=== PATIENT | female | born 1995 | race Caucasian/White ===

== ENCOUNTER 2016-07-26 04:41 | Emergency (ER) | payer MEDICAID ==
[2016-07-26 04:46] VITALS: TEMP 98.6
[2016-07-26] MEDS ORDERED: ONDANSETRON 4 MG/2 ML VIAL ONE (04:53)
[2016-07-26] MEDS ORDERED: ONDANSETRON 4 MG/2 ML VIAL IVP ONE (04:59)
[2016-07-26] MEDS ORDERED: NS 1,000 ML IV ONE ×2 (04:59→05:32)
[2016-07-26 05:07] LABS: % IMMATURE GRANULYOCYTES 0.2 % (0.0-1.1); ABSOLUTE IMMATURE GRANULOCYTES 0.03 10^3/uL (0.00-0.10); ADD DIFF? NO; ADD MORPH? NO; ADD SCAN? NO; ATYPICAL LYMPHOCYTE FLAG 10 (0-99); FRAGMENT RBC FLAG 0 (0-99); HEMATOCRIT 45.4 % (38.0-47.0); HEMOGLOBIN 15.6 g/dL (12.6-16.3); LEFT SHIFT FLG 0 (0-99); LIPEMIA HEMOLYSIS FLAG 90 (0-99); MEAN CELL HEMOGLOBIN 30.5 pg (27.9-34.1); MEAN CELL HEMOGLOBIN CONCENTR. 34.4 g/dL (32.4-36.7); MEAN CELL VOLUME 88.7 fL (81.5-99.8); MEAN PLATELET VOLUME 11.1 fL (8.7-11.7); PLATELET CLUMPS FLAG 10 (0-99); PLATELET COUNT 191 10^3/uL (150-400); RED BLOOD CELL COUNT 5.12 10^6/uL (4.18-5.33); RED CELL DISTRIBUTION WIDTH 13.1 % (11.5-15.2)
--- NOTE | 2016-07-26 05:17 | EDPHY ---
H & P Stated Complaint: n/v/d Time Seen by Provider: 07/26/16 04:52 HPI/ROS: HPI The patient presents with nausea, vomiting, abdominal pain, diarrhea. Her symptoms started at about 8 or 9:00 p.m. last night, initially with mild right- sided lower abdominal pain, they were crampy in nature. She later developed multiple episodes of nonbloody nonbilious emesis and about 2 episodes of watery diarrhea. Because of the vomiting, she came into the emergency room for further care. She has not had a fever. She has no history of similar pain. She has no sick contacts. REVIEW OF SYSTEMS Constitutional: No fever, no chills. Eyes: No discharge. ENT: No sore throat. Cardiovascular: No chest pain, no palpitations. Respiratory: No cough, no shortness of breath. Gastrointestinal: See HPI Genitourinary: No hematuria. Musculoskeletal: No back pain. Skin: No rashes. Neurological: No headache. PMHx: Healthy, has IUD in place Soc Hx: No recent alcohol use PHYSICAL General Appearance: Alert, no distress Eyes: Pupils equal and round no pallor or injection ENT, Mouth: Mucous membranes moist Respiratory: There are no retractions, lungs are clear to auscultation Cardiovascular: Regular rate and rhythm Gastrointestinal: Abdomen is soft and non-tender, no masses, bowel sounds normal Neurological: A&O, moves all extremities Skin: Warm and dry, no rashes Musculoskeletal: Neck is supple non tender Extremities: symmetrical, full range of motion Psychiatric: Patient is oriented X 3, there is no agitation Source: Patient Exam Limitations: No limitations - Personal History LMP (Females 10-55): IUD In Place - Medical/Surgical History Hx Asthma: No Hx Chronic Respiratory Disease: No Hx Diabetes: No Hx Cardiac Disease: No Hx Renal Disease: No Hx Cirrhosis: No Hx Alcoholism: No Hx HIV/AIDS: No Hx Splenectomy or Spleen Trauma: No Other PMH: denies - Social History Smoking Status: Former smoker Constitutional: Initial Vital Signs Temperature (C) 37 C 07/26/16 04:44 Heart Rate 82 07/26/16 04:44 Respiratory Rate 20 07/26/16 04:44 Blood Pressure 120/68 07/26/16 04:44 O2 Sat (%) 97 07/26/16 04:44 O2 Delivery Mode Room Air Allergies/Adverse Reactions: ciprofloxacin [From Cipro] Allergy (Verified 07/26/16 04:44) ciprofloxacin HCl [From Cipro] Allergy (Verified 07/26/16 04:44) Home Medications: Medication Instructions Recorded Ondansetron Odt [Zofran Odt 4 mg 4 mg PO Q4 PRN #10 tab 07/26/16 (*)] Medical Decision Making ED Course/Re-evaluation: The patient was given IV fluids and Zofran in the emergency room with improvement in her symptoms. She had no episodes of vomiting here. She had repeat abdominal exams performed by me and was never tender anywhere in her abdomen, making appendicitis unlikely. I did give her return precautions for appendicitis. Labs returned revealing a leukocytosis which is likely related to a viral gastroenteritis, versus less likely appendicitis. Differential Diagnosis: This is a healthy 20-year-old female who presents from home with nausea, vomiting, diarrhea with lower abdominal pain. On exam, she is well-appearing with normal vital signs. While she complains of abdominal pain, she is nontender on exam. Differential diagnosis includes viral gastroenteritis, toxin mediated enterocolitis, less likely appendicitis. - Data Points Laboratory Results: Laboratory Results 07/26/16 04:58 07/26/16 04:58 07/26/16 07/26/16 05:30 04:58 WBC 12.30 H 10^3/uL (3.80-9.50) RBC 5.12 10^6/uL (4.18-5.33) Hgb 15.6 g/dL (12.6-16.3) Hct 45.4 % (38.0-47.0) MCV 88.7 fL (81.5-99.8) MCH 30.5 pg (27.9-34.1) MCHC 34.4 g/dL (32.4-36.7) RDW 13.1 % (11.5-15.2) Plt Count 191 10^3/uL (150-400) MPV 11.1 fL (8.7-11.7) Neut % (Auto) 81.9 H % (39.3-74.2) Lymph % (Auto) 9.8 L % (15.0-45.0) Frio % (Auto) 5.7 % (4.5-13.0) Eos % (Auto) 2.2 % (0.6-7.6) Baso % (Auto) 0.2 L % (0.3-1.7) Nucleat RBC Rel Count 0.0 % (0.0-0.2) Absolute Neuts (auto) 10.06 H 10^3/uL (1.70-6.50) Absolute Lymphs (auto) 1.21 10^3/uL (1.00-3.00) Absolute Monos (auto) 0.70 10^3/uL (0.30-0.80) Absolute Eos (auto) 0.27 10^3/uL (0.03-0.40) Absolute Basos (auto) 0.03 10^3/uL (0.02-0.10) Absolute Nucleated RBC 0.00 10^3/uL (0-0.01) Immature Gran % 0.2 % (0.0-1.1) Immature Gran # 0.03 10^3/uL (0.00-0.10) Sodium 142 mEq/L (134-144) Potassium 4.1 mEq/L (3.5-5.2) Chloride 109 mEq/L (97-110) Carbon Dioxide 23 mEq/l (22-31) Anion Gap 10 mEq/L (8-16) BUN 12 mg/dL (7-23) Creatinine 0.7 mg/dL (0.6-1.0) Estimated GFR > 60 Glucose 97 mg/dL (70-100) Calcium 8.9 mg/dL (8.5-10.4) Beta HCG, Qual NEGATIVE Urine Color YELLOW Urine Appearance HAZY Urine pH 5.0 (5.0-7.5) Ur Specific Lindsay 1.029 (1.002-1.030) Urine Protein NEGATIVE (NEGATIVE) Urine Ketones TRACE H (NEGATIVE) Urine Blood NEGATIVE (NEGATIVE) Urine Nitrate NEGATIVE (NEGATIVE) Urine Bilirubin NEGATIVE (NEGATIVE) Urine Urobilinogen NEGATIVE EU (0.2-1.0) Ur Leukocyte Esterase NEGATIVE (NEGATIVE) Urine RBC Pending Urine WBC Pending Ur Epithelial Cells Pending Urine Glucose NEGATIVE (NEGATIVE) Medications Given: Discontinued Medications Sodium Chloride (Ns) 1,000 mls @ 0 mls/hr IV ONCE ONE PRN Reason: Wide Open Stop: 07/26/16 05:00 Last Admin: 07/26/16 05:08 Dose: 1,000 mls Sodium Chloride (Ns) 1,000 mls @ 0 mls/hr IV ONCE ONE PRN Reason: Wide Open Stop: 07/26/16 05:33 Last Admin: 07/26/16 05:33 Dose: 1,000 mls Ondansetron HCl (Zofran) 4 mg IVP EDNOW ONE Stop: 07/26/16 05:00 Last Admin: 07/26/16 05:08 Dose: 4 mg Departure - Departure Disposition: Home, Routine, Self-Care Clinical Impression: Nausea, vomiting, and diarrhea Condition: Good Instructions: Gastroenteritis (ED) Additional Instructions: Please return to the emergency room immediately if you have any worsening lower abdominal pain, high fever or worse in any way. Otherwise you can follow up with your regular doctor in 1-2 days. Prescriptions: Ondansetron Odt [Zofran Odt 4 mg (*)] 4 mg PO Q4 PRN #10 tab PRN Reason: Nausea/Vomiting, Can'T Take Po
[2016-07-26 05:21] LABS: ANION GAP 10 mEq/L (8-16); CALCIUM 8.9 mg/dL (8.5-10.4); CARBON DIOXIDE 23 mEq/l (22-31); CHLORIDE 109 mEq/L (97-110); CREATININE 0.7 mg/dL (0.6-1.0); GLOMERULAR FILTRATION RATE > 60; GLUCOSE 97 mg/dL (70-100); POTASSIUM 4.1 mEq/L (3.5-5.2); SODIUM 142 mEq/L (134-144)
[2016-07-26 06:10] LABS: COLOR YELLOW; LEUKOCYTE ESTERASE,URINE NEGATIVE (NEGATIVE); NITRITE,URINE NEGATIVE (NEGATIVE)
[2016-07-26 06:20] LABS: BACTERIA 1+ /hpf (NONE SEEN); MUCUS 4+ /lpf (NONE-1+)
[2016-07-26] MEDS ORDERED: ONDANSETRON 4MG PREPACK#2 BTL TAKEHOME ONE (06:24)
[2016-07-26 06:41] VITALS: BP 119/73; PULSE 56; RESP 16; O2SAT 99
== END 2016-07-26 06:41 | disposition home or self-care (01) ==
DX: R11.2 Nausea with vomiting, unspecified (principal); R19.7 Diarrhea, unspecified; Z87.891 Personal history of nicotine dependence
CPT/HCPCS: 96374; J2405